=== PATIENT | female | born 1990 | race African-American/Black ===

== ENCOUNTER 2019-02-22 21:24 | Emergency (ER) | payer SELFPAY ==
--- NOTE | 2019-02-22 21:44 | EDM.PDOC ---
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 She states that she was walking around when she felt a gush of blood come out of the vagina. She states that since that time she has gone to the bathroom and is no longer having any vaginal bleeding. She denies any abdominal cramping, back pain or dysuria. Last menstrual period was on January 01, 2019 - would put her at about 7 weeks gestation. 3, Para 2. Patient denies any fever, chills, headache, change in vision, syncope or near syncope. Denies any chest pain, back pain, shortness of breath or cough. Denies any abdominal pain, nausea, vomiting, diarrhea, constipation or dysuria. Has not noted any blood in urine or stool. Patient has been eating and drinking appropriately. Review of systems: As per history of present illness and below otherwise all systems reviewed and negative. Past medical history: As per history of present illness and as reviewed below otherwise noncontributory. Surgical history: As per history of present illness and as reviewed below otherwise noncontributory. Social history: See social history for further information Family history: As per history of present illness and as reviewed below otherwise noncontributory. Physical exam: General: Well-developed and well-nourished 28-year-old -[place] female. Alert and oriented. Nontoxic appearing and in no acute distress. HEENT: Atraumatic, normocephalic, pupils equal and reactive bilaterally, negative for conjunctival pallor or scleral icterus, mucous membranes moist, TMs normal bilaterally, throat clear, neck supple, nontender, trachea midline. No drooling or trismus noted. No meningeal signs. No hot potato voice noted. Lungs: Clear to auscultation, breath sounds equal bilaterally, chest nontender. Heart: S1S2, regular rate and rhythm without overt murmur Abdomen: Soft, nondistended, nontender. Negative for masses or hepatosplenomegaly. Negative for costovertebral tenderness. Pelvis: Stable nontender. Genitourinary: This was done with consent and a fur floor worker at the bedside. Normal appearing external genitalia. Cervical os is closed. There is some blood in the vaginal vault. No current bleeding noted. No tenderness or discomfort with bimanual exam. Rectal: Deferred. Skin: Intact, warm, dry. No lesions or rashes noted. Extremities: Atraumatic, moves all extremities per self without difficulty or deficits, negative for cords or calf pain. Neurovascular unremarkable. Neuro: Awake, alert, oriented. Cranial nerves II through XII unremarkable. Cerebellum unremarkable. Motor and sensory unremarkable throughout. Exam nonfocal. Notes: Lab work is pending. Dr. Ruiz was briefed on this patient and will follow diagnostics and disposition patient appropriately. Diagnostics: CBC, CMP, UA, AB/Rh, urine , quantitative hCG Definitive disposition and diagnosis as appropriate pending reevaluation and review of above. (Meryl Ackerman) - Related Data Allergies Allergy/AdvReac Type Severity Reaction Status Date / Time No Known Allergies Allergy Verified 02/22/19 21:31 Home Meds: Home Meds . 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: - Infectious Disease History Infectious Disease History: Reports: Chicken Pox <Meryl Ackerman - Last Filed: 02/23/19 10:58> Social & Family History - Family History Family Medical History: Noncontributory - Tobacco Use Smoking Status *Q: Never Smoker Second Hand Smoke Exposure: No - Caffeine Use Caffeine Use: Reports: Soda, Tea - Recreational Drug Use Recreational Drug Use: No <Meryl Ackerman - Last Filed: 02/23/19 10:58> ED ROS GENERAL - Review of Systems Review Of Systems: See Below <Dax Wallisin Medhat - Last Filed: 02/22/19 23:58> - Review of Systems Review Of Systems: ROS reveals no pertinent complaints other than HPI. <TyronMeryl Sanders - Last Filed: 02/23/19 10:58> ED EXAM - Physical Exam Exam: See Below <BimalChaddhola Meléndez - Last Filed: 02/22/19 23:58> - Physical Exam Exam: See Below (See dictation) <Meryl Ackerman - Last Filed: 02/23/19 10:58> - Vital Signs Last Recorded V/S: Last Vital Signs Temp 98.1 F 02/23/19 00:15 Pulse 84 02/22/19 21:32 Resp 18 02/22/19 21:32 BP 135/88 02/23/19 00:15 Pulse Ox 100 02/23/19 00:15 - Orders/Labs/Meds Orders: Active Orders 24 hr Category Date Time Status CULTURE URINE [RM] Stat Lab 02/22/19 21:40 Received Labs: Laboratory Tests 02/22/19 02/22/19 02/22/19 Range/Units 21:40 21:40 21:47 WBC 11.18 H (4.0-11.0) K/uL RBC 4.28 L (4.30-5.90) M/uL Hgb 12.2 (12.0-16.0) g/dL Hct 36.2 (36.0-46.0) % MCV 84.6 (80.0-98.0) fL MCH 28.5 (27.0-32.0) pg MCHC 33.7 (31.0-37.0) g/dL RDW Std Deviation 41.4 (28.0-62.0) fl RDW Coeff of Cesar 14 (11.0-15.0) % Plt Count 316 (150-400) K/uL MPV 10.00 (7.40-12.00) fL Neut % (Auto) 60.4 (48.0-80.0) % Lymph % (Auto) 31.3 (16.0-40.0) % Baldwin % (Auto) 7.0 (0.0-15.0) % Eos % (Auto) 1.1 (0.0-7.0) % Baso % (Auto) 0.2 (0.0-1.5) % Neut # (Auto) 6.6 H (1.4-5.7) K/uL Lymph # (Auto) 3.4 H (0.6-2.4) K/uL Baldwin # (Auto) 0.8 (0.0-0.8) K/uL Eos # (Auto) 0.1 (0.0-0.7) K/uL Baso # (Auto) 0.0 (0.0-0.1) K/uL Add Manual Diff CRISIS MANAGER Nucleated RBC % 0.0 /100WBC Nucleated RBCs # 0 K/uL Sodium (136-145) mmol/L Potassium (3.5-5.1) mmol/L Chloride (98-107) mmol/L Carbon Dioxide (21.0-32.0) mmol/L BUN (7.0-18.0) mg/dL Creatinine (0.6-1.0) mg/dL Est Cr Clr Drug Dosing mL/min Estimated GFR (MDRD) ml/min Glucose (74-106) mg/dL Calcium (8.5-10.1) mg/dL Total Bilirubin (0.2-1.0) mg/dL AST (15-37) IU/L ALT (14-63) IU/L Alkaline Phosphatase (46-116) U/L Total Protein (6.4-8.2) g/dL Albumin (3.4-5.0) g/dL Globulin (2.6-4.0) g/dL Albumin/Globulin Ratio (0.9-1.6) HCG, Quant mIU/mL Urine Color DARK YELLOW Urine Appearance SLT CLOUDY Urine pH 6.0 (5.0-8.0) Ur Specific Naper >= 1.030 (1.001-1.035) Urine Protein 100 H (NEGATIVE) mg/dL Urine Glucose (UA) NEGATIVE (NEGATIVE) mg/dL Urine Ketones NEGATIVE (NEGATIVE) mg/dL Urine Occult Blood LARGE H (NEGATIVE) Urine Nitrite POSITIVE H (NEGATIVE) Urine Bilirubin NEGATIVE (NEGATIVE) Urine Urobilinogen 4.0 H (<2.0) EU/dL Ur Leukocyte Esterase TRACE H (NEGATIVE) Urine RBC 15-20 (0-2/HPF) Urine WBC 5-7 (0-5/HPF) Ur Epithelial Cells MODERATE (NONE-FEW) Ur Renal Epithelial Cell OCCASIONAL Urine Bacteria 3+ H (NEGATIVE) Urinalysis Comment Urine HCG, Qual POSITIVE (NEGATIVE) Blood Type 02/22/19 02/22/19 02/22/19 Range/Units 21:47 21:47 21:47 WBC (4.0-11.0) K/uL RBC (4.30-5.90) M/uL Hgb (12.0-16.0) g/dL Hct (36.0-46.0) % MCV (80.0-98.0) fL MCH (27.0-32.0) pg MCHC (31.0-37.0) g/dL RDW Std Deviation (28.0-62.0) fl RDW Coeff of Cesar (11.0-15.0) % Plt Count (150-400) K/uL MPV (7.40-12.00) fL Neut % (Auto) (48.0-80.0) % Lymph % (Auto) (16.0-40.0) % Baldwin % (Auto) (0.0-15.0) % Eos % (Auto) (0.0-7.0) % Baso % (Auto) (0.0-1.5) % Neut # (Auto) (1.4-5.7) K/uL Lymph # (Auto) (0.6-2.4) K/uL Baldwin # (Auto) (0.0-0.8) K/uL Eos # (Auto) (0.0-0.7) K/uL Baso # (Auto) (0.0-0.1) K/uL Add Manual Diff Nucleated RBC % /100WBC Nucleated RBCs # K/uL Sodium 135 L (136-145) mmol/L Potassium 3.6 (3.5-5.1) mmol/L Chloride 101 (98-107) mmol/L Carbon Dioxide 24.2 (21.0-32.0) mmol/L BUN 6 L (7.0-18.0) mg/dL Creatinine 0.7 (0.6-1.0) mg/dL Est Cr Clr Drug Dosing 114.01 mL/min Estimated GFR (MDRD) > 60.0 ml/min Glucose 98 (74-106) mg/dL Calcium 8.8 (8.5-10.1) mg/dL Total Bilirubin 0.2 (0.2-1.0) mg/dL AST 31 (15-37) IU/L ALT 42 (14-63) IU/L Alkaline Phosphatase 62 (46-116) U/L Total Protein 7.3 (6.4-8.2) g/dL Albumin 3.3 L (3.4-5.0) g/dL Globulin 4.0 (2.6-4.0) g/dL Albumin/Globulin Ratio 0.8 L (0.9-1.6) HCG, Quant 95909.0 mIU/mL Urine Color Urine Appearance Urine pH (5.0-8.0) Ur Specific Naper (1.001-1.035) Urine Protein (NEGATIVE) mg/dL Urine Glucose (UA) (NEGATIVE) mg/dL Urine Ketones (NEGATIVE) mg/dL Urine Occult Blood (NEGATIVE) Urine Nitrite (NEGATIVE) Urine Bilirubin (NEGATIVE) Urine Urobilinogen (<2.0) EU/dL Ur Leukocyte Esterase (NEGATIVE) Urine RBC (0-2/HPF) Urine WBC (0-5/HPF) Ur Epithelial Cells (NONE-FEW) Ur Renal Epithelial Cell Urine Bacteria (NEGATIVE) Urinalysis Comment Urine HCG, Qual (NEGATIVE) Blood Type B POSITIVE Departure - Departure Time of Disposition: 23:59 Condition: Good <Chadd Wallis - Last Filed: 02/22/19 23:58> <Meryl Ackerman - Last Filed: 02/23/19 10:58> - Departure Disposition: Home, Self-Care 01 Clinical Impression: Threatened UTI (urinary tract infection) Qualifiers: Urinary tract infection type: site unspecified Hematuria presence: without hematuria Qualified Code(s): N39.0 - Urinary tract infection, site not specified - Discharge Information Instructions: Urinary Tract Infection, Adult, [id number], Threatened Miscarriage, [id number] Referrals: PCP,None [Primary Care Provider] - Forms: ED Department Discharge Additional Instructions: Medication as prescribed Nothing per vagina/vaginal rest , no douching tampons or sexual intercourse Return if symptoms persist or worsen Follow-up with , call phone number below to schedule appropriate follow-up Repeat ultrasound required [facility] [address] [place] [address] [place] [id number] [facility] [address] [place] [id number] The following information is given to patients seen in the emergency department who are being discharged to home. This information is to outline your options for follow-up care. We provide all patients seen in our emergency department with a follow-up referral. The need for follow-up, as well as the timing and circumstances, are variable depending upon the specifics of your emergency department visit. If you don't have a primary care physician on staff, we will provide you with a referral. We always advise you to contact your personal physician following an emergency department visit to inform them of the circumstance of the visit and for follow-up with them and/or the need for any referrals to a consulting specialist. The emergency department will also refer you to a specialist when appropriate. This referral assures that you have the opportunity for follow-up care with a specialist. All of these measure are taken in an effort to provide you with optimal care, which includes your follow-up. Under all circumstances we always encourage you to contact your private physician who remains a resource for coordinating your care. When calling for follow-up care, please make the office aware that this follow-up is from your recent emergency room visit. If for any reason you are refused follow-up, please contact the [facility] emergency department at and asked to speak to the emergency department charge nurse. - My Orders Last 24 Hours: My Active Orders 02/22/19 21:40 CULTURE URINE [RM] Stat - Assessment/Plan Last 24 Hours: My Active Orders 02/22/19 21:40 CULTURE URINE [RM] Stat
[2019-02-22 22:19] LABS: CHLORIDE,CL 101 mmol/L (98-107); SODIUM,NA 135 mmol/L (136-145)
--- NOTE | 2019-02-22 23:49 | US ---
INDICATION: Vaginal spotting TECHNIQUE: Ultrasound OB pelvis transabdominal. Real-time devi-scale imaging of the fetus was performed with anatomic survey limited to biometric measurements. COMPARISON: None FINDINGS: Sonographic imaging demonstrates a single intrauterine gestation. A thick-walled cystic lesion is present in the left ovary, likely a corpus luteum cyst. Arterial blood flow seen within the left ovary. The right ovaries is not well identified. There is a stent membrane seen along the anterior margin of the uterus near the internal cervical os which may represent unfused amnion and chorion. heart rate: 163 bpm Orientation: Cephalic Placenta: Anterior Amniotic fluid: Subjectively normal Cervix: 4.4 cm in length The composite ultrasound gestational age is calculated at 12 weeks, 6 days with an estimated sonographic due date of 12/31/2018. The estimated weight is 60 grams. The following biometric measurements were obtained: Biparietal diameter: 2.1 cm Head circumference: 7.3 cm Abdominal circumference: 5.8 cm Femur length: 0.8 cm IMPRESSION: 1. Single viable intrauterine with an estimated gestational age of 12 weeks, 6 days. This is discordant with age by LMP estimated at 7 weeks, 4 days. Follow-up imaging is recommended to assess growth. Dictated by Andrea Goodwin MD @ 02/22/2019 11:49:15 PM Dictated by: Andrea Goodwin MD @ 02/22/2019 23:49:26 (Electronically Signed)
== END 2019-02-23 00:20 | disposition home or self-care (01) ==
LOC: MW.ED 21:24
DX: O20.0 Threatened abortion (principal); N39.0 Urinary tract infection, site not specified; Z3A.12 12 weeks gestation of pregnancy
CPT/HCPCS: 36415; 76815; 76815-26; 80053; 81001; 81025; 84702; 85025; 86900; 86901; 87086; 99283; 99284-25

== ENCOUNTER 2019-08-29 02:20 | Inpatient (IN) | payer OTHER ==
[2019-08-29] MEDS ORDERED: Ampicillin 2 GM in Sodium Chloride 0.9% 100 ML IV ONE (04:00)
[2019-08-29] MEDS ORDERED: Lidocaine 1% 50 ML MDV INJECT PRN (04:31)
[2019-08-29] MEDS ORDERED: Tranexamic Acid 1,000 MG in Sodium Chloride 0.9% 100 ML IV PRN (04:31)
[2019-08-29] MEDS ORDERED: Sodium Chloride 0.9% 10 ML SDV IV PRN (04:31)
[2019-08-29] MEDS ORDERED: Butorphanol 1 MG/ML SDV IVPUSH PRN (04:31)
[2019-08-29] MEDS ORDERED: Sodium Chloride 0.9% 10 ML Syringe FLUSH PRN (04:31)
[2019-08-29] MEDS ORDERED: Nalbuphine 10 MG/1 ML Vial IVPUSH PRN (04:31)
[2019-08-29] MEDS ORDERED: Methylergonovine 0.2 MG/1 ML Amp IM PRN (04:31)
[2019-08-29] MEDS ORDERED: Misoprostol 200 MCG Tab PO PRN (04:31)
[2019-08-29] MEDS ORDERED: Carboprost Tromethamine 250 MCG/1 ML Amp IM PRN (04:31)
[2019-08-29] MEDS ORDERED: Water For Irrigation,Sterile 1,000 ML Container IRR PRN (04:31)
[2019-08-29] MEDS ORDERED: Oxytocin/0.9 % Sodium Chloride 30 UNIT/500 ML BAG IV SCH (04:45)
[2019-08-29] MEDS ORDERED: Ampicillin 1 GM in Sodium Chloride 0.9% 50 ML IV SCH (08:00)
--- NOTE | 2019-08-29 09:32 | PCM.LDHP ---
L&D History of Present Illness - General Date of Service: 08/29/19 Admit Problem/Dx: Patient Status Order with Admit Dx/Problem 08/29/19 02:55 Patient Status [ADT] Routine 08/29/19 04:31 Patient Status [ADT] Routine Admission Diagnosis/Problem Admission Diagnosis/Problem -related examination Source of Information: Patient History Limitations: Reports: No Limitations - History of Present Illness Improves with: Reports: None Worsens with: Reports: None Associated Symptoms: Reports: N - Related Data Allergies/Adverse Reactions: Allergies Allergy/AdvReac Type Severity Reaction Status Date / Time No Known Allergies Allergy Verified 02/22/19 21:31 Home Medications: Home Meds . 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: - Infectious Disease History Infectious Disease History: Reports: Chicken Pox Social & Family History - Family History Family Medical History: Noncontributory - Tobacco Use Smoking Status *Q: Never Smoker - Caffeine Use Caffeine Use: Reports: Coffee, Soda, Tea - Recreational Drug Use Recreational Drug Use: No H&P Review of Systems - Review of Systems: Review Of Systems: See Below General: Reports: No Symptoms HEENT: Reports: No Symptoms Pulmonary: Reports: No Symptoms Cardiovascular: Reports: No Symptoms Gastrointestinal: Reports: No Symptoms Genitourinary: Reports: No Symptoms Musculoskeletal: Reports: No Symptoms Skin: Reports: No Symptoms Psychiatric: Reports: No Symptoms Neurological: Reports: No Symptoms Hematologic/Lymphatic: Reports: No Symptoms Immunologic: Reports: No Symptoms L&D Exam - Exam Exam: See Below - Vital Signs Weight: 124.738 kg - OB Specific Fundal Height In cm: 40 Contraction Intensity: Moderate Movement: Active Heart Tones: Present Presentation: Vertex - Granados Score Granados Score Cervix Position: Anterior Granados Score Consistency: Soft Granados Score Effacement: 51-70% Granados Score Dilation: 3-4 cm Granados Score Infant's Station: -3 Granados Score Total: 8 - Exam General: Alert, Oriented HEENT: PERRLA, Conjunctiva Clear, EACs Clear, EOMI, Hearing Intact, Mucosa Moist & [place], Nares Patent, Normal Nasal Septum, Posterior Pharynx Clear, TMs Clear Neck: Supple, Trachea Midline Lungs: Clear to Auscultation, Normal Respiratory Effort Cardiovascular: Regular Rate, Regular Rhythm GI/Abdominal Exam: Normal Bowel Sounds, Soft, Non-Tender, No Organomegaly, No Distention, No Abnormal Bruit, No Mass, Pelvis Stable Rectal Exam: Normal Exam, Normal Rectal Tone Genitourinary: Normal external exam, Normal bimanual exam, Normal speculum exam Back Exam: Normal Inspection, Full Range of Motion Extremities: Normal Inspection, Normal Range of Motion, Non-Tender, No Pedal Edema, Normal Capillary Refill Skin: Warm, Dry, Intact Neurological: Cranial Nerves Intact, Reflexes Equal Bilateral Psychiatric: Alert, Normal Affect, Normal Mood - Patient Data Lab Results Last 24 hrs: Laboratory Results - last 24 hr 08/29/19 08/29/19 Range/Units 05:04 05:04 WBC 10.89 (4.0-11.0) K/uL RBC 4.11 L (4.30-5.90) M/uL Hgb 11.0 L (12.0-16.0) g/dL Hct 33.7 L (36.0-46.0) % MCV 82.0 (80.0-98.0) fL MCH 26.8 L (27.0-32.0) pg MCHC 32.6 (31.0-37.0) g/dL RDW Std Deviation 42.1 (28.0-62.0) fl RDW Coeff of Cesar 14 (11.0-15.0) % Plt Count 304 (150-400) K/uL MPV 10.80 (7.40-12.00) fL Nucleated RBC % 0.0 /100WBC Nucleated RBCs # 0 K/uL Blood Type B POSITIVE Antibody Screen NEGATIVE Result Diagrams: 08/29/19 05:04 Problem List Initiated/Reviewed/Updated: Yes Orders Last 24hrs: Active Orders 24 hr Category Date Time Status Patient Status [ADT] Routine ADT 08/29/19 04:31 Active Heart Tones [RC] CONTINUOUS Care 08/29/19 04:31 Active Non Stress Test [RC] PER UNIT ROUTINE Care 08/29/19 02:55 Active May Shower [RC] ASDIRECTED Care 08/29/19 04:31 Active Notify Provider [RC] PRN Care 08/29/19 04:31 Active Up ad Lisa [RC] ASDIRECTED Care 08/29/19 02:55 Active Up ad Lisa [RC] ASDIRECTED Care 08/29/19 04:31 Active Vaginal Exam [RC] Click to Edit Care 08/29/19 02:55 Active Vaginal Exam [RC] PRN Care 08/29/19 04:31 Active Vital Signs [RC] PER UNIT ROUTINE Care 08/29/19 02:55 Active Vital Signs [RC] PER UNIT ROUTINE Care 08/29/19 04:31 Active RAPID PLASMA REAGIN, QUANT [REF] Routine Lab 08/29/19 05:04 Received Ampicillin 1 gm Med 08/29/19 09:30 Ordered Sodium Chloride 0.9% [Normal Saline] 50 ml IV Q4H Butorphanol [Stadol] Med 08/29/19 04:31 Active 1 mg IVPUSH ASDIRECTED PRN Carboprost Tromethamine [Hemabate DS] Med 08/29/19 04:31 Active 250 mcg IM ASDIRECTED PRN Lactated Ringers [Ringers, Lactated] 1,000 ml Med 08/29/19 04:45 Active IV ASDIRECTED Lidocaine 1% [Xylocaine 1%] Med 08/29/19 04:31 Active 50 ml INJECT ONETIME PRN Methylergonovine [Methergine] Med 08/29/19 04:31 Active 0.2 mg IM ASDIRECTED PRN Nalbuphine [Nubain] Med 08/29/19 04:31 Active 10 mg IVPUSH ASDIRECTED PRN Oxytocin/0.9 % Sodium Chloride [Oxytocin 30 Unit/500 ML Med 08/29/19 04:45 Active -NS] 30 unit in 500 ml IV TITRATE Sodium Chloride 0.9% [Normal Saline] Med 08/29/19 04:31 Active 10 ml IV ASDIRECTED PRN Sodium Chloride 0.9% [Saline Flush] Med 08/29/19 04:31 Active 10 ml FLUSH ASDIRECTED PRN Tranexamic Acid [Cyklokapron] 1,000 mg Med 08/29/19 04:31 Active Sodium Chloride 0.9% [Normal Saline] 100 ml IV ONETIME Water For Irrigation,Sterile [Sterile Water for Med 08/29/19 04:31 Active Irrigation] 1,000 ml IRR ASDIRECTED PRN miSOPROStoL [Cytotec] Med 12/06/19 04:31 Active 200 mcg PO ONETIME PRN Scalp Electrode [WOMSER] Per Unit Routine Oth 08/29/19 04:31 Ordered Peripheral IV Insertion Adult [OM.PC] Routine Oth 08/29/19 04:31 Ordered Resuscitation Status Routine Resus Stat 08/29/19 02:55 Ordered Medication Orders Butorphanol Tartrate (Stadol) 1 mg IVPUSH ASDIRECTED PRN PRN Reason: Pain Carboprost Tromethamine (Hemabate Ds) 250 mcg IM ASDIRECTED PRN PRN Reason: Post Hemorrhage Tranexamic Acid 1,000 mg/ (Sodium Chloride) 110 mls @ 660 mls/hr IV ONETIME PRN PRN Reason: Bleeding Lactated Ringer's (Ringers, Lactated) 1,000 mls @ 150 mls/hr IV ASDIRECTED ANDREI Oxytocin/Sodium Chloride (Oxytocin 30 Unit/500 Ml-Ns) 30 unit in 500 mls @ 999 mls/hr IV TITRATE ANDREI Ampicillin Sodium 1 gm/ Sodium (Chloride) 50 mls @ 100 mls/hr IV Q4H ANDREI Lidocaine HCl (Xylocaine 1%) 50 ml INJECT ONETIME PRN PRN Reason: Laceration repair Methylergonovine Maleate (Methergine) 0.2 mg IM ASDIRECTED PRN PRN Reason: Post Hemorrhage Misoprostol (Cytotec) 200 mcg PO ONETIME PRN PRN Reason: Post Hemorrhage Nalbuphine HCl (Nubain) 10 mg IVPUSH ASDIRECTED PRN PRN Reason: Pain (severe 7-10) Sodium Chloride (Saline Flush) 10 ml FLUSH ASDIRECTED PRN PRN Reason: Keep Vein Open Sodium Chloride (Normal Saline) 10 ml IV ASDIRECTED PRN PRN Reason: IV Use Sterile Water (Sterile Water For Irrigation) 1,000 ml IRR ASDIRECTED PRN PRN Reason: delivery Assessment/Plan Comment:: Patient is 40 weeks she is an intermittent labor today she is dilated 4 cm with bulging bag of water she is para 2001 she is GBS positive she is on antibiotics now we will wait until she finished with her second dose and we will consider doing rupture of her membrane to enhance her labor
[2019-08-29] MEDS: Ampicillin 1 GM in Sodium Chloride 0.9% 50 ML IV SCH ×2 (09:42→13:51)
--- NOTE | 2019-08-29 11:58 | PCM.PREANE ---
Preanesthetic Assessment - Anesthesia/Transfusion/Family Hx Anesthesia History: Prior Anesthesia Without Reaction Family History of Anesthesia Reaction: No - Physical Assessment NPO Status Date: 08/29/19 NPO Status Time: 00:05 Height: 1.68 m Weight: 124.738 kg ASA Class: 3 Airway Class: Mallampati = 3 Thyro-Mental Finger Breadths: 3 Mouth Opening Finger Breadths: 3 - Lab Values: Laboratory Last Values WBC 10.89 K/uL (4.0-11.0) 08/29/19 05:04 RBC 4.11 M/uL (4.30-5.90) L 08/29/19 05:04 Hgb 11.0 g/dL (12.0-16.0) L 08/29/19 05:04 Hct 33.7 % (36.0-46.0) L 08/29/19 05:04 MCV 82.0 fL (80.0-98.0) 08/29/19 05:04 MCH 26.8 pg (27.0-32.0) L 08/29/19 05:04 MCHC 32.6 g/dL (31.0-37.0) 08/29/19 05:04 RDW Std Deviation 42.1 fl (28.0-62.0) 08/29/19 05:04 RDW Coeff of Cesar 14 % (11.0-15.0) 08/29/19 05:04 Plt Count 304 K/uL (150-400) 08/29/19 05:04 MPV 10.80 fL (7.40-12.00) 08/29/19 05:04 Nucleated RBC % 0.0 /100WBC 08/29/19 05:04 Nucleated RBCs # 0 K/uL 08/29/19 05:04 Blood Type B POSITIVE 08/29/19 05:04 Antibody Screen NEGATIVE 08/29/19 05:04 - Allergies Allergies/Adverse Reactions: Allergies Allergy/AdvReac Type Severity Reaction Status Date / Time No Known Allergies Allergy Verified 02/22/19 21:31 - Acknowledgements Anesthesia Type Planned: Spinal, Epidural Pt an Appropriate Candidate for the Planned Anesthesia: Yes Alternatives and Risks of Anesthesia Discussed w Pt/Guardian: Yes Pt/Guardian Understands and Agrees with Anesthesia Plan: Yes Additional Comments: This patient is a , with prio vaginal deliveries with epidural anesthesia. She says she takes no medications. She is early in labor, yet pattern has variable decelerations. I have discussed epidural anesthesia for vaginal dleivery. I have also disccused spinal anestheisa for possible C Section delivery. She understands and is agreeable to either typs of anesthesia. 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 [No Known Home Meds] 02/22/19 [History] - CURRENT (IN HOUSE) MEDS Current Meds: Current Medications Butorphanol Tartrate (Stadol) 1 mg IVPUSH ASDIRECTED PRN PRN Reason: Pain Carboprost Tromethamine (Hemabate Ds) 250 mcg IM ASDIRECTED PRN PRN Reason: Post Hemorrhage Tranexamic Acid 1,000 mg/ (Sodium Chloride) 110 mls @ 660 mls/hr IV ONETIME PRN PRN Reason: Bleeding Lactated Ringer's (Ringers, Lactated) 1,000 mls @ 150 mls/hr IV ASDIRECTED [facility] Oxytocin/Sodium Chloride (Oxytocin 30 Unit/500 Ml-Ns) 30 unit in 500 mls @ 999 mls/hr IV TITRATE [facility] Ampicillin Sodium 1 gm/ Sodium (Chloride) 50 mls @ 100 mls/hr IV Q4H [facility] Last Admin: 08/29/19 09:42 Dose: 100 mls/hr Lidocaine HCl (Xylocaine 1%) 50 ml INJECT ONETIME PRN PRN Reason: Laceration repair Methylergonovine Maleate (Methergine) 0.2 mg IM ASDIRECTED PRN PRN Reason: Post Hemorrhage Misoprostol (Cytotec) 200 mcg PO ONETIME PRN PRN Reason: Post Hemorrhage Nalbuphine HCl (Nubain) 10 mg IVPUSH ASDIRECTED PRN PRN Reason: Pain (severe 7-10) Sodium Chloride (Saline Flush) 10 ml FLUSH ASDIRECTED PRN PRN Reason: Keep Vein Open Sodium Chloride (Normal Saline) 10 ml IV ASDIRECTED PRN PRN Reason: IV Use Sterile Water (Sterile Water For Irrigation) 1,000 ml IRR ASDIRECTED PRN PRN Reason: delivery Discontinued Medications Ampicillin Sodium 2 gm/ Sodium (Chloride) 100 mls @ 200 mls/hr IV ONETIME ONE Stop: 08/29/19 04:29 Last Admin: 08/29/19 05:30 Dose: 200 mls/hr
[2019-08-29] MEDS: Lactated Ringers 1,000 ML IV SCH ×2 (12:15→16:21)
[2019-08-29] MEDS ORDERED: Misoprostol 25 MCG (1/4 of 100 MCG) Tab PO PRN (12:25)
[2019-08-29] MEDS ORDERED: Misoprostol 25 MCG (1/4 of 100 MCG) Tab VAG PRN (12:25)
[2019-08-29] MEDS ORDERED: Ropivacaine HCl/PF 0 ML ONE (16:18)
[2019-08-29] MEDS ORDERED: Ropivacaine 0.2% 2 MG/ML 20 ML SDV ONE (16:18)
[2019-08-29] MEDS ORDERED: fentaNYL 100 MCG/2 ML SDV ONE (16:18)
--- NOTE | 2019-08-29 16:49 | PCM.DEL ---
L & D Note - General Info Date of Service: 08/29/19 Mother's Due Date: 08/31/19 - Delivery Note Labor: Spontaneous Delivery Outcome: Livebirth Infant Delivery Method: Spontaneous Vaginal Delivery-Single Delivery Mode: Spontaneous Presentation: Vertex Nuchal Cord: None Anesthesia Type: None Amniotic Fluid Description: Clear Episiotomy Type: None Laceration: None Placenta: Intact, Spontaneous Cord: 3 Vessels Estimated Blood Loss: 100 Resuscitation Needed: No Stanford: Stimulated Score 1 min: 8 Score 5 min: 9 Delivery Comments (Free Text/Narrative):: of viable male, patient sat up for epidural and became complete, delivered with nurse assistance. Infant placed on mothers abd, RN at for evaluation. Cord clamped and cut, cord blood collected. I delivered placenta grossly intact. Bimanual normal, inspection noted intact perineum. EBL 100cc. APGARS 8/9 , wt; pending bonding. Mother and baby left in stable condition for recovery. - General Info Date of Service: 08/29/19 Admission Dx/Problem (Free Text): Patient Status Order with Admit Dx/Problem 08/29/19 02:55 Patient Status [ADT] Routine 08/29/19 04:31 Patient Status [ADT] Routine Admission Diagnosis/Problem Admission Diagnosis/Problem -related examination Functional Status: Reports: Pain Controlled - Review of Systems General: Reports: No Symptoms HEENT: Reports: No Symptoms Pulmonary: Reports: No Symptoms Cardiovascular: Reports: No Symptoms Gastrointestinal: Reports: No Symptoms Genitourinary: Reports: No Symptoms Musculoskeletal: Reports: No Symptoms Skin: Reports: No Symptoms Neurological: Reports: No Symptoms Psychiatric: Reports: No Symptoms - Patient Data Weight - Most Recent: 124.738 kg Lab Results Last 24 Hours: Laboratory Results - last 24 hr 08/29/19 08/29/19 Range/Units 05:04 05:04 WBC 10.89 (4.0-11.0) K/uL RBC 4.11 L (4.30-5.90) M/uL Hgb 11.0 L (12.0-16.0) g/dL Hct 33.7 L (36.0-46.0) % MCV 82.0 (80.0-98.0) fL MCH 26.8 L (27.0-32.0) pg MCHC 32.6 (31.0-37.0) g/dL RDW Std Deviation 42.1 (28.0-62.0) fl RDW Coeff of Cesar 14 (11.0-15.0) % Plt Count 304 (150-400) K/uL MPV 10.80 (7.40-12.00) fL Nucleated RBC % 0.0 /100WBC Nucleated RBCs # 0 K/uL Blood Type B POSITIVE Antibody Screen NEGATIVE Med Orders - Current: Current Medications Butorphanol Tartrate (Stadol) 1 mg IVPUSH ASDIRECTED PRN PRN Reason: Pain Last Admin: 08/29/19 15:48 Dose: 1 mg Carboprost Tromethamine (Hemabate Ds) 250 mcg IM ASDIRECTED PRN PRN Reason: Post Hemorrhage Tranexamic Acid 1,000 mg/ (Sodium Chloride) 110 mls @ 660 mls/hr IV ONETIME PRN PRN Reason: Bleeding Lactated Ringer's (Ringers, Lactated) 1,000 mls @ 150 mls/hr IV ASDIRECTED [facility] Last Admin: 08/29/19 16:21 Dose: 999 mls/hr Oxytocin/Sodium Chloride (Oxytocin 30 Unit/500 Ml-Ns) 30 unit in 500 mls @ 999 mls/hr IV TITRATE [facility] Ampicillin Sodium 1 gm/ Sodium (Chloride) 50 mls @ 100 mls/hr IV Q4H [facility] Last Admin: 08/29/19 13:51 Dose: 100 mls/hr Lidocaine HCl (Xylocaine 1%) 50 ml INJECT ONETIME PRN PRN Reason: Laceration repair Methylergonovine Maleate (Methergine) 0.2 mg IM ASDIRECTED PRN PRN Reason: Post Hemorrhage Misoprostol (Cytotec) 200 mcg PO ONETIME PRN PRN Reason: Post Hemorrhage Misoprostol (Cytotec) 25 mcg PO Q4H PRN PRN Reason: cervical ripening Last Admin: 08/29/19 13:00 Dose: 25 mcg Misoprostol (Cytotec) 25 mcg VAG Q4H PRN PRN Reason: Cervical Ripening Last Admin: 08/29/19 13:01 Dose: 25 mcg Nalbuphine HCl (Nubain) 10 mg IVPUSH ASDIRECTED PRN PRN Reason: Pain (severe 7-10) Sodium Chloride (Saline Flush) 10 ml FLUSH ASDIRECTED PRN PRN Reason: Keep Vein Open Sodium Chloride (Normal Saline) 10 ml IV ASDIRECTED PRN PRN Reason: IV Use Sterile Water (Sterile Water For Irrigation) 1,000 ml IRR ASDIRECTED PRN PRN Reason: delivery Discontinued Medications Fentanyl (Sublimaze) Confirm Administered Dose 100 mcg .ROUTE .STK-MED ONE Stop: 08/29/19 16:19 Ampicillin Sodium 2 gm/ Sodium (Chloride) 100 mls @ 200 mls/hr IV ONETIME ONE Stop: 08/29/19 04:29 Last Admin: 08/29/19 05:30 Dose: 200 mls/hr Ropivacaine (Naropin 0.2%) Confirm Administered Dose 100 mls @ as directed .ROUTE .STK-MED ONE Stop: 08/29/19 16:19 Ropivacaine (Naropin 0.2%) Confirm Administered Dose 20 ml .ROUTE .STK-MED ONE Stop: 08/29/19 16:19 - Exam General: Alert, Oriented, Cooperative Lungs: Normal Respiratory Effort (Female) Exam: Normal External Exam, Normal Bimanual Exam, Vaginal Bleeding. No: Vaginal Lesions, Vaginal Tears Back Exam: Normal Inspection, Full Range of Motion Extremities: Normal Inspection, Normal Range of Motion, Non-Tender, No Pedal Edema Skin: Warm, Dry, Intact Neurological: No New Focal Deficit, Normal Speech, Normal Tone, Strength Equal Bilateral, Sensation Intact Psy/Mental Status: Alert, Normal Affect, Normal Mood - Problem List & Annotations (1) Supervision of normal IUP (intrauterine ) in multigravida SNOMED Code(s): 927840621, 891824334, 059576802 Code(s): Z34.80 - ENCOUNTER FOR SUPRVSN OF NORMAL , UNSP TRIMESTER Status: Acute Priority: High Current Visit: Yes Qualifiers: Trimester: third trimester Qualified Code(s): Z34.83 - Encounter for supervision of other normal , third trimester (2) (normal spontaneous vaginal delivery) SNOMED Code(s): 68375634, 776357723 Code(s): O80 - ENCOUNTER FOR FULL-TERM UNCOMPLICATED DELIVERY Status: Acute Priority: High Current Visit: Yes - Problem List Review Problem List Initiated/Reviewed/Updated: Yes - My Orders Last 24 Hours: My Active Orders 08/29/19 12:25 miSOPROStoL [Cytotec] 25 mcg PO Q4H PRN miSOPROStoL [Cytotec] 25 mcg VAG Q4H PRN 08/29/19 Lunch Regular Diet [DIET] - Plan Plan:: Patient is 40 weeks she is an intermittent labor today she is dilated 4 cm with bulging bag of water she is para 2001 she is GBS positive she is on antibiotics now we will wait until she finished with her second dose and we will consider doing rupture of her membrane to enhance her labor Delivery A: viable male, APGARS 8/9, Wt: pending bonding. EBL 100cc, intact perineum. Stable P: Routine pp plan of care
[2019-08-29] MEDS ORDERED: Witch Hazel Medicated Pads 40/Jar TOP PRN (16:52)
[2019-08-29] MEDS ORDERED: Lanolin 100% Cream 7 GM Tube TOP PRN (16:52)
[2019-08-29] MEDS ORDERED: Ibuprofen 400 MG Tab PO PRN (16:52)
[2019-08-29] MEDS ORDERED: Benzocaine/Menthol 20%-0.5% Spray 78 GM Cannister TOP PRN (16:52)
[2019-08-29] MEDS ORDERED: Docusate Sodium 100 MG Cap PO PRN (16:52)
[2019-08-29] MEDS ORDERED: Bisacodyl 10 MG Supp RECTAL PRN (16:52)
[2019-08-29] MEDS ORDERED: oxyCODONE 5 MG Tab PO PRN (16:52)
[2019-08-29] MEDS ORDERED: Acetaminophen 500 MG Tab PO PRN ×2 (16:52)
--- NOTE | 2019-08-29 18:56 | PCM.PRNOTE ---
- Free Text/Narrative Note: Requested for ALEJANDRO, , active labor. Last check 4 cm. Anxious, pain 07/03. Set-up for procedure. Prep done. L3-L4 localized with 5 ml 1% lido. At point of needle insertion, pt "I'm having my baby." Pt checked, placed supine, checked, delivered without issues. Patient and infant doing well.
[2019-08-29] MEDS: Ibuprofen 800 MG Tab PO PRN (23:56)
[2019-08-30] MEDS: Ibuprofen 800 MG Tab PO PRN (07:46)
--- NOTE | 2019-08-30 10:35 | PCM.PNPP ---
- General Info Date of Service: 08/30/19 Functional Status: Reports: Pain Controlled - Review of Systems General: Reports: No Symptoms HEENT: Reports: No Symptoms Pulmonary: Reports: No Symptoms Cardiovascular: Reports: No Symptoms Gastrointestinal: Reports: No Symptoms Genitourinary: Reports: No Symptoms Musculoskeletal: Reports: No Symptoms Skin: Reports: No Symptoms Neurological: Reports: No Symptoms Psychiatric: Reports: No Symptoms - General Info Date of Service: 08/30/19 - Patient Data Vital Signs - Most Recent: Last Vital Signs Temp 36.8 C 08/30/19 04:34 Pulse 70 08/30/19 07:35 Resp 16 08/30/19 07:35 BP 114/62 08/30/19 07:35 Pulse Ox 97 08/30/19 07:35 Weight - Most Recent: 124.738 kg I&O - Last 24 Hours: Intake & Output 08/29/19 08/30/19 08/30/19 22:59 06:59 14:59 Intake Total 1000 Balance 1000 Med Orders - Current: Current Medications Acetaminophen (Tylenol Extra Strength) 500 mg PO Q4H PRN PRN Reason: Pain Acetaminophen (Tylenol Extra Strength) 1,000 mg PO Q4H PRN PRN Reason: Pain Benzocaine/Menthol (Dermoplast Pain Relief 20%-0.5% [place]) 78 gm TOP ASDIRECTED PRN PRN Reason: Perineal Comfort Measure Last Admin: 08/29/19 22:19 Dose: 1 canister Bisacodyl (Dulcolax) 10 mg RECTAL ONETIME PRN PRN Reason: Constipation Docusate Sodium (Colace) 100 mg PO BID PRN PRN Reason: Constipation Emollient Ointment (Lansinoh Hpa) 0 gm TOP ASDIRECTED PRN PRN Reason: Sore Nipples Ibuprofen (Motrin) 400 mg PO Q4H PRN PRN Reason: Pain Ibuprofen (Motrin) 800 mg PO Q6H PRN PRN Reason: Pain Last Admin: 08/30/19 07:46 Dose: 800 mg Oxycodone HCl (Oxycodone) 5 mg PO Q2H PRN PRN Reason: Pain Witch Noreen (Tucks) 1 pad TOP ASDIRECTED PRN PRN Reason: comfort care Last Admin: 08/29/19 22:18 Dose: 1 carton Discontinued Medications Butorphanol Tartrate (Stadol) 1 mg IVPUSH ASDIRECTED PRN PRN Reason: Pain Last Admin: 08/29/19 15:48 Dose: 1 mg Carboprost Tromethamine (Hemabate Ds) 250 mcg IM ASDIRECTED PRN PRN Reason: Post Hemorrhage Fentanyl (Sublimaze) Confirm Administered Dose 100 mcg .ROUTE [facility] ONE Stop: 08/29/19 16:19 Last Admin: 08/29/19 17:16 Dose: Not Given Tranexamic Acid 1,000 mg/ (Sodium Chloride) 110 mls @ 660 mls/hr IV ONETIME PRN PRN Reason: Bleeding Ampicillin Sodium 2 gm/ Sodium (Chloride) 100 mls @ 200 mls/hr IV ONETIME ONE Stop: 08/29/19 04:29 Last Admin: 08/29/19 05:30 Dose: 200 mls/hr Lactated Ringer's (Ringers, Lactated) 1,000 mls @ 150 mls/hr IV ASDIRECTED [facility] Last Admin: 08/29/19 16:21 Dose: 999 mls/hr Oxytocin/Sodium Chloride (Oxytocin 30 Unit/500 Ml-Ns) 30 unit in 500 mls @ 999 mls/hr IV TITRATE [facility] Last Admin: 08/29/19 16:32 Dose: 999 mls/hr Ampicillin Sodium 1 gm/ Sodium (Chloride) 50 mls @ 100 mls/hr IV Q4H [facility] Last Admin: 08/29/19 13:51 Dose: 100 mls/hr Ropivacaine (Naropin 0.2%) Confirm Administered Dose 100 mls @ as directed .ROUTE .[facility] ONE Stop: 08/29/19 16:19 Last Admin: 08/29/19 17:16 Dose: Not Given Lidocaine HCl (Xylocaine 1%) 50 ml INJECT ONETIME PRN PRN Reason: Laceration repair Methylergonovine Maleate (Methergine) 0.2 mg IM ASDIRECTED PRN PRN Reason: Post Hemorrhage Misoprostol (Cytotec) 200 mcg PO ONETIME PRN PRN Reason: Post Hemorrhage Misoprostol (Cytotec) 25 mcg PO Q4H PRN PRN Reason: cervical ripening Last Admin: 08/29/19 13:00 Dose: 25 mcg Misoprostol (Cytotec) 25 mcg VAG Q4H PRN PRN Reason: Cervical Ripening Last Admin: 08/29/19 13:01 Dose: 25 mcg Nalbuphine HCl (Nubain) 10 mg IVPUSH ASDIRECTED PRN PRN Reason: Pain (severe 7-10) Ropivacaine (Naropin 0.2%) Confirm Administered Dose 20 ml .ROUTE .STK-MED ONE Stop: 08/29/19 16:19 Last Admin: 08/29/19 17:16 Dose: Not Given Sodium Chloride (Saline Flush) 10 ml FLUSH ASDIRECTED PRN PRN Reason: Keep Vein Open Sodium Chloride (Normal Saline) 10 ml IV ASDIRECTED PRN PRN Reason: IV Use Sterile Water (Sterile Water For Irrigation) 1,000 ml IRR ASDIRECTED PRN PRN Reason: delivery - Interaction Disposition, : in Room with Family Interaction: Holding Infant Feeding: Attempted ; Nursed Fair/Poor Support Person: Significant Other - Recovery Exam Fundal Tone: Firm Fundal Level: At Umbilicus Fundal Placement: Midline Lochia Amount: Scant Lochia Color: Rubra/Red Perineum Description: Intact, Minimal Bruising/Swelling Bladder Status: Voiding - Exam General: Alert, Oriented HEENT: Pupils Equal Neck: Supple Lungs: Clear to Auscultation, Normal Respiratory Effort Cardiovascular: Regular Rate, Regular Rhythm GI/Abdominal Exam: Normal Bowel Sounds, Soft, Non-Tender, No Organomegaly, No Distention, No Abnormal Bruit, No Mass, Pelvis Stable Extremities: Normal Inspection, Normal Range of Motion, Non-Tender, No Pedal Edema, Normal Capillary Refill Skin: Warm, Dry, Intact Wound/Incisions: Healing Well Neurological: No New Focal Deficit Psy/Mental Status: Alert, Normal Affect, Normal Mood - Problem List Review Problem List Initiated/Reviewed/Updated: Yes - Plan Plan:: Patient is 40 weeks she is an intermittent labor today she is dilated 4 cm with bulging bag of water she is para 2002 she is GBS positive she is on antibiotics now we will wait until she finished with her second dose and we will consider doing rupture of her membrane to enhance her labor Delivery A: viable male, APGARS 8/9, Wt: pending bonding. EBL 100cc, intact perineum. Stable P: Routine pp plan of care
--- NOTE | 2019-08-31 09:59 | PCM.DCSUM1 ---
Discharge Summary - Hospital Course Diagnosis: Stroke: No - Discharge Data Discharge Date: 08/31/19 Discharge Disposition: Home, Self-Care 01 Condition: Good - Referral to Home Health Primary Care Physician: PCP None - Patient Instructions Diet: Usual Diet as Tolerated Activity: As Tolerated Driving: Do Not Drive Showering/Bathing: May Shower - Discharge Plan Home Medications: Home Meds . [No Known Home Meds] 02/22/19 [History] Patient Handouts: Baby Blues, Home Care Instructions for Mom Referrals: [facility] [Outside] Siobhan Phelps CNM [Mid-] - 10/10/19 3:00 pm - Discharge Summary/Plan Comment DC Time >30 min.: Yes - General Info Date of Service: 08/31/19 Functional Status: Reports: Pain Controlled - Review of Systems General: Reports: No Symptoms HEENT: Reports: No Symptoms Pulmonary: Reports: No Symptoms Cardiovascular: Reports: No Symptoms Gastrointestinal: Reports: No Symptoms Genitourinary: Reports: No Symptoms Musculoskeletal: Reports: No Symptoms Skin: Reports: No Symptoms Neurological: Reports: No Symptoms Psychiatric: Reports: No Symptoms - Patient Data Vitals - Most Recent: Last Vital Signs Temp 36.3 C 08/31/19 08:00 Pulse 87 08/31/19 08:00 Resp 17 08/31/19 08:00 BP 127/81 08/31/19 08:00 Pulse Ox 96 08/31/19 08:00 Weight - Most Recent: 124.738 kg Med Orders - Current: Current Medications Acetaminophen (Tylenol Extra Strength) 500 mg PO Q4H PRN PRN Reason: Pain Acetaminophen (Tylenol Extra Strength) 1,000 mg PO Q4H PRN PRN Reason: Pain Benzocaine/Menthol (Dermoplast Pain Relief 20%-0.5% [place]) 78 gm TOP ASDIRECTED PRN PRN Reason: Perineal Comfort Measure Last Admin: 08/29/19 22:19 Dose: 1 canister Bisacodyl (Dulcolax) 10 mg RECTAL ONETIME PRN PRN Reason: Constipation Docusate Sodium (Colace) 100 mg PO BID PRN PRN Reason: Constipation Emollient Ointment (Lansinoh Hpa) 0 gm TOP ASDIRECTED PRN PRN Reason: Sore Nipples Ibuprofen (Motrin) 400 mg PO Q4H PRN PRN Reason: Pain Ibuprofen (Motrin) 800 mg PO Q6H PRN PRN Reason: Pain Last Admin: 08/30/19 07:46 Dose: 800 mg Oxycodone HCl (Oxycodone) 5 mg PO Q2H PRN PRN Reason: Pain Witch Noreen (Tucks) 1 pad TOP ASDIRECTED PRN PRN Reason: comfort care Last Admin: 08/29/19 22:18 Dose: 1 carton Discontinued Medications Butorphanol Tartrate (Stadol) 1 mg IVPUSH ASDIRECTED PRN PRN Reason: Pain Last Admin: 08/29/19 15:48 Dose: 1 mg Carboprost Tromethamine (Hemabate Ds) 250 mcg IM ASDIRECTED PRN PRN Reason: Post Hemorrhage Fentanyl (Sublimaze) Confirm Administered Dose 100 mcg .ROUTE .STK-MED ONE Stop: 08/29/19 16:19 Last Admin: 08/29/19 17:16 Dose: Not Given Tranexamic Acid 1,000 mg/ (Sodium Chloride) 110 mls @ 660 mls/hr IV ONETIME PRN PRN Reason: Bleeding Ampicillin Sodium 2 gm/ Sodium (Chloride) 100 mls @ 200 mls/hr IV ONETIME ONE Stop: 08/29/19 04:29 Last Admin: 08/29/19 05:30 Dose: 200 mls/hr Lactated Ringer's (Ringers, Lactated) 1,000 mls @ 150 mls/hr IV ASDIRECTED [facility] Last Admin: 08/29/19 16:21 Dose: 999 mls/hr Oxytocin/Sodium Chloride (Oxytocin 30 Unit/500 Ml-Ns) 30 unit in 500 mls @ 999 mls/hr IV TITRATE [facility] Last Admin: 08/29/19 16:32 Dose: 999 mls/hr Ampicillin Sodium 1 gm/ Sodium (Chloride) 50 mls @ 100 mls/hr IV Q4H [facility] Last Admin: 08/29/19 13:51 Dose: 100 mls/hr Ropivacaine (Naropin 0.2%) Confirm Administered Dose 100 mls @ as directed .ROUTE .STK-MED ONE Stop: 08/29/19 16:19 Last Admin: 08/29/19 17:16 Dose: Not Given Lidocaine HCl (Xylocaine 1%) 50 ml INJECT ONETIME PRN PRN Reason: Laceration repair Methylergonovine Maleate (Methergine) 0.2 mg IM ASDIRECTED PRN PRN Reason: Post Hemorrhage Misoprostol (Cytotec) 200 mcg PO ONETIME PRN PRN Reason: Post Hemorrhage Misoprostol (Cytotec) 25 mcg PO Q4H PRN PRN Reason: cervical ripening Last Admin: 08/29/19 13:00 Dose: 25 mcg Misoprostol (Cytotec) 25 mcg VAG Q4H PRN PRN Reason: Cervical Ripening Last Admin: 08/29/19 13:01 Dose: 25 mcg Nalbuphine HCl (Nubain) 10 mg IVPUSH ASDIRECTED PRN PRN Reason: Pain (severe 7-10) Ropivacaine (Naropin 0.2%) Confirm Administered Dose 20 ml .ROUTE .STK-MED ONE Stop: 08/29/19 16:19 Last Admin: 08/29/19 17:16 Dose: Not Given Sodium Chloride (Saline Flush) 10 ml FLUSH ASDIRECTED PRN PRN Reason: Keep Vein Open Sodium Chloride (Normal Saline) 10 ml IV ASDIRECTED PRN PRN Reason: IV Use Sterile Water (Sterile Water For Irrigation) 1,000 ml IRR ASDIRECTED PRN PRN Reason: delivery - Exam General: Reports: Alert, Oriented HEENT: Reports: Pupils Equal, Pupils Reactive, EOMI, Mucous Membr. Moist/Hazel Neck: Reports: Supple Lungs: Reports: Clear to Auscultation, Normal Respiratory Effort Cardiovascular: Reports: Regular Rate, Regular Rhythm GI/Abdominal Exam: Normal Bowel Sounds, Soft, Non-Tender, No Organomegaly, No Distention, No Abnormal Bruit, No Mass, Pelvis Stable (Female) Exam: Normal External Exam, Normal Speculum Exam, Normal Bimanual Exam Rectal (Female) Exam: Normal Exam, Normal Rectal Tone Back Exam: Reports: Normal Inspection, Full Range of Motion Extremities: Normal Inspection, Normal Range of Motion, Non-Tender, No Pedal Edema, Normal Capillary Refill Skin: Reports: Warm, Dry, Intact Wound/Incisions: Reports: Healing Well Neurological: Reports: No New Focal Deficit Psy/Mental Status: Reports: Alert, Normal Affect, Normal Mood
== END 2019-08-31 12:50 | disposition home or self-care (01) | DRG 807 ==
LOC: MW.OBCHECK 02:20 → MW.OB 02:22 → MW.OBCHECK 04:31 → MW.OB 06:41 → OBSVTOIN 16:53 → MW.OB 20:01
PROVIDERS: ADMIT Obstetrics & Gynecology; ATTEND Obstetrics & Gynecology
PROC: 10E0XZZ Delivery of Products of Conception, External Approach (ICD-10-PCS; principal; 2019-08-29)
PROC: 10907ZC Drainage of Amniotic Fluid, Therapeutic from Products of Conception, Via Natural or Artificial Opening (ICD-10-PCS; 2019-08-29)
DX: O48.0 Post-term pregnancy (principal); Z37.0 Single live birth; O99.824 Streptococcus B carrier state complicating childbirth; Z3A.40 40 weeks gestation of pregnancy
CPT/HCPCS: 36415; 59025; 59409; 85027; 86593; 86850; 86900; 86901; A9270-GY; J0290; J0595; J2590; J2795; J3010; J7050; J7120

== ENCOUNTER 2022-09-17 21:42 | Emergency (ER) | payer BC, OTHER ==
[2022-09-17] MEDS ORDERED: Aspirin 81 MG Tab.Chew PO ONE (22:01)
[2022-09-17 22:54] LABS: CARBON DIOXIDE,CO2 25.6 mmol/L (21.0-32.0); POTASSIUM,K 3.5 mmol/L (3.5-5.1)
== END 2022-09-17 23:19 | disposition home or self-care (01) ==
LOC: MW.ED 21:42
DX: R07.9 Chest pain, unspecified (principal); E66.9 Obesity, unspecified; Z68.32 Body mass index [BMI] 32.0-32.9, adult
CPT/HCPCS: 36415; 71045; 80053; 84484; 84703; 85025; 93005; 99285; A9270

== ENCOUNTER 2022-10-07 10:55 | Emergency (ER) | payer BC ==
[2022-10-07] MEDS ORDERED: predniSONE 10 MG Tab PO STA (12:02)
== END 2022-10-07 12:23 | disposition home or self-care (01) ==
LOC: MW.ED 10:55
DX: G56.01 Carpal tunnel syndrome, right upper limb (principal); Z79.899 Other long term (current) drug therapy
CPT/HCPCS: 99283; A9270

== ENCOUNTER 2022-10-21 10:47 | Emergency (ER) | payer BC | END 2022-10-21 14:14 | disposition home or self-care (01) | LOC: MW.ED 10:47 | DX: R20.2 Paresthesia of skin (principal) | CPT/HCPCS: 93971-26-RT; 93971-RT; 99283 ==

== ENCOUNTER 2022-12-11 08:39 | Emergency (ER) | payer OTHER, BC | END 2022-12-11 09:50 | disposition home or self-care (01) | LOC: MW.ED 08:39 | DX: M25.552 Pain in left hip (principal); V89.2XXA Person injured in unspecified motor-vehicle accident, traffic, initial encounter; Y92.410 Unspecified street and highway as the place of occurrence of the external cause | CPT/HCPCS: 99283 ==